=== PATIENT | male | born 1930 | race Caucasian/White ===

== ENCOUNTER 2018-02-17 12:12 | Inpatient (IN) | payer OTHER ==
[~2018-02-17] VITALS: Ht 182.9 cm; Wt 93.4 kg
[~2018-02-17 12:12] MED LIST: AUGMENTIN 875 M1 TAB PO; CEPHALEXIN500 MG PO; COUMADIN 5 MG TA5 MG PO; COUMADIN2.5 M1 PO; COUMADIN5 M2 PO; LEVOTHYROXIN0.075 M1 PO; LEVOTHYROXINE50 MCG PO; LISINOPRIL20 M1 PO; LOVENOX 8080 MG/0.8 SC; PERCOCET 325 MG1 TA2 PO; TYLENOL325 M1 PO; VITAMIN D31000 IU PO
[2018-02-17 13:08] LABS: ABSOLUTE BASOPHIL COUNT 0 /CUMM (0.0-0.2); ABSOLUTE EOSINOPHIL COUNT 0 /CUMM (0.0-0.7); ABSOLUTE GRANULOCYTE CT 8.6 /CUMM (1.4-6.5); ABSOLUTE LYMPH COUNT 0.6 /CUMM (1.2-3.4); ABSOLUTE MONOCYTE COUNT 0.3 /CUMM (0.10-0.60); BASOPHIL % 0.1 % (0.0-2.0); EOSINOPHIL % 0.4 % (0-5); HEMATOCRIT 41.9 % (42-52); MEAN CORPUSCULAR HGB CONC 33.8 G/DL (33.0-37.0); MEAN CORPUSCULAR VOLUME 91.6 FL (80.0-94.0); MEAN PLATELET VOLUME 7.4 FL (7.4-10.4); PLATELET COUNT 193 /CUMM (130-400); RBC DISTRIBUTION WIDTH 13.5 % (11.5-14.5); RED BLOOD CELL CT 4.58 /CUMM (4.70-6.10); WHITE BLOOD CELL COUNT 9.6 /CUMM (4.8-10.8)
[2018-02-17 13:09] LABS: GRANULOCYTE % 89.6 % (42.2-75.2)
--- NOTE | 2018-02-17 13:34 | RADIOLOGY REPORT ---
EXAMINATION: XR CHEST CLINICAL INFORMATION: Fever and nausea COMPARISON: 02/03/2016 TECHNIQUE: 2 views of the chest were obtained. FINDINGS: Lungs are well expanded and clear. No evidence of consolidation or pleural effusion. Mild cardiomegaly with dual-chamber pacemaker in place. Atherosclerotic calcification of the aorta. The hilar contours are normal. 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 IMPRESSION: 1. No evidence of pneumonia. 2. Mild cardiomegaly with dual-chamber pacemaker in place.
--- NOTE | 2018-02-17 13:39 | ED GENERAL ADULT ---
History of Present Illness General Chief Complaint: Fever Stated Complaint: FEVER Source: patient, family Exam Limitations: no limitations Vital Signs & Intake/Output Vital Signs & Intake/Output Vital Signs Date Time Temp Pulse Resp B/P B/P Pulse O2 O2 Flow FiO2 Mean Ox Delivery Rate 02/17 1457 99.6 02/17 1314 102.5 02/17 1221 102.5 84 17 123/79 94 Room Air Triage Note: PT TO ED WITH C/O FEVERS BEGINNING THIS AM. TEMP 102.5 AT TRIAGE. DENIES COUGH OR URINARY SYMPTOMS. REPORTS NAUSEA WITH NO VOMITING. DENIES ABD PAIN. Triage Nurses Notes Reviewed? 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 Denies any similar sick contacts. Denies any headache blurred vision neck pain cough chest pain arm pain jaw pain nausea vomiting redness of the skin recent tick bites ear pain sore throat (Tracy SAMAYOA,Maximo) Allergies Coded Allergies: codeine (Mild, RASH/VOMITING 02/02/16) griseofulvin (From KAYLA-PEG (ULTRAMICROSIZE)) (Mild, WELTS, HIVES 02/17/18) valsartan (Mild, RASH, SEVERE WEAKNESS THAT PT COULD BARELY WALK 02/17/18) Reconcile Medications Amlodipine Besylate 5 MG TABLET 1 TAB PO DAILY BP (Reported) Cholecalciferol (Vitamin D3) (Vitamin D) 1,000 UNIT TABLET 1 TAB PO DAILY SUPPLEMENT (Reported) Levothyroxine Sodium 50 MCG TABLET 1 TAB PO DAILY THYROID (Reported) Lisinopril 20 MG TABLET 1 TAB PO DAILY BP (Reported) Pravastatin Sodium (Pravachol) 40 MG TABLET 1 TAB PO DAILY CHOLESTEROL ( Reported) Warfarin Sodium (Coumadin) 5 MG TABLET 1 TAB PO EOD BLOOD THINNER (Reported) Warfarin Sodium (Coumadin) 2.5 MG TABLET 1 TAB PO EOD BLOOD THINNER (Reported ) (Bear Burk DO) Past History Travel History Traveled to [place] past 21 day No Medical History Any Pertinent Medical History? 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 No (Maximo Nagel) Review of Systems Review of Systems Constitutional: Reports: see HPI, fever. EENTM: Reports: no symptoms. Respiratory: Reports: no symptoms. Cardiovascular: Reports: no symptoms. GI: Reports: no symptoms. Genitourinary: Reports: no symptoms. Musculoskeletal: Reports: no symptoms. Skin: Reports: no symptoms. Neurological/Psychological: Reports: no symptoms. Hematologic/Endocrine: Reports: no symptoms. Immunologic/Allergic: Reports: no symptoms. All Other Systems: Reviewed and Negative (Maximo Nagel) Physical Exam Physical Exam General Appearance: no apparent distress, alert, comfortable Head: atraumatic Eyes: Bilateral: normal appearance. Ears, Nose, Throat: hearing grossly normal Neck: normal inspection Respiratory: no respiratory distress Cardiovascular: regular rate/rhythm Peripheral Pulses: 1+ dorsalis pedis (R), 1+ dorsalis pedis (L) Gastrointestinal: normal bowel sounds, soft, non-tender Extremities: normal inspection, normal range of motion, no edema Neurologic/Psych: no motor/sensory deficits, awake, oriented x 3 Skin: intact, normal color, warm/dry Core Measures ACS in differential dx? No CVA/TIA Diagnosis: No Sepsis Present: No Sepsis Focused Exam Completed? No (Maximo Nagel) Progress Differential Diagnoses I considered the following diagnoses in my evaluation of the patient: [Sepsis pneumonia pharyngitis viral syndrome cellulitis bronchitis meningitis] Plan of Care: Orders Procedure Date/time Status Heart Healthy Diet 02/18 B Active ED Holding Orders 02/17 1619 Active Admit to inpatient 02/17 1619 Active Vital Signs 08/04 1619 Active Code Status 02/17 1619 Active Add-on Test (ER Only) 02/17 1558 Active LACTIC ACID 02/17 1522 Active LYME TITRE 02/17 1246 Active BLOOD CULTURE 02/17 1222 Active URINALYSIS 02/17 1222 Complete TROPONIN LEVEL 02/17 1222 Complete LACTIC ACID 02/17 1222 Complete COMPREHENSIVE METABOLIC PANEL 02/17 1222 Complete CBC WITHOUT DIFFERENTIAL 02/17 1222 Complete EKG 02/17 1222 Active Current Medications Sig/Tomas Start time Last Medication Dose Stop Time Status Admin Sodium Chloride 1,000 ML BOLUS ONE 02/17 1500 AC 02/17 (Normal Saline 0.9%) 02/17 1659 1509 Laboratory Tests 02/17/18 1412: Urine Color YEL, Urine Clarity CLEAR, Urine pH 6.0, Ur Specific [place] 1.010, Urine Protein NEG, Urine Ketones NEG, Urine Nitrite NEG, Urine Bilirubin NEG, Urine Urobilinogen 0.2, Ur Leukocyte Esterase NEG, Ur Microscopic SEDIMENT EXAMINED, Urine RBC RARE, Urine WBC RARE, Ur Epithelial Cells RARE, Urine Hemoglobin SMALL H, Urine Glucose NEG 02/17/18 1246: Anion Gap 9, Estimated GFR 58 L, BUN/Creatinine Ratio 23.3, Glucose 99, Lactic Acid 1.3, Calcium 9.2, Total Bilirubin 0.9, AST 29, ALT 17 L, Alkaline Phosphatase 58, Troponin I 0.03, Total Protein 7.3, Albumin 4.2, Globulin 3.1, Albumin/Globulin Ratio 1.4, CBC w Diff MAN DIFF ORDERED, RBC 4.58 L, MCV 91.6, MCH 31.0, MCHC 33.8, RDW 13.5, MPV 7.4, Gran % 89.6 H, Lymphocytes % 6.4 L, Monocytes % 3.5, Eosinophils % 0.4, Basophils % 0.1, Absolute Granulocytes 8.6 H, Segmented Neutrophils 80 H, Band Neutrophils 7 H, Absolute Lymphocytes 0.6 L, Lymphocytes 8 L, Monocytes 4, Absolute Monocytes 0.3, Eosinophils 1, Absolute Eosinophils 0, Absolute Basophils 0, Platelet Estimate VERIFIED BY SMEAR, Normocytic RBCs VERIFIED, Normochromic RBCs VERIFIED, Lyme Disease Antibody Pending Microbiology 02/17 1255 BLOOD: Blood Culture - RECD 02/17 1248 BLOOD: Blood Culture - RECD Patient on initial presentation is resting comfortably AT bedside was noted to be febrile patient was given IV fluids and ibuprofen with resolution of his fever no specific source of his infection blood work was unremarkable chest x- ray unremarkable urinalysis unremarkable blood cultures and urine culture pending Discussed admission with patient who is aware and has no questions There is consideration of evaluation of bacteremia Diagnostic Imaging: Viewed by Me: Radiology Read. CXR Impression: no acute abnormality, no infiltrates, normal size heart, normal mediastinum Initial ED EKG: AV paced rhythm, 77 bpm Comments: PATIENT: ADRIAN MEHTA PRESENT AGE: 87 PATIENT ACCOUNT NO: [id number] : 32 LOCATION: [facility] ORDERING PHYSICIAN: Abrahan SAMAYOA SERVICE DATE: 02/17/18 EXAM TYPE: RAD - XRY-CHEST XRAY, TWO VIEWS EXAMINATION: XR CHEST CLINICAL INFORMATION: Fever and nausea COMPARISON: 02/03/2016 TECHNIQUE: 2 views of the chest were obtained. FINDINGS: Lungs are well expanded and clear. No evidence of consolidation or pleural effusion. Mild cardiomegaly with dual-chamber pacemaker in place. Atherosclerotic calcification of the aorta. The hilar contours are normal. 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 IMPRESSION: 1. No evidence of pneumonia. 2. Mild cardiomegaly with dual-chamber pacemaker in place. DICTATED BY: Shayan Lr MD DATE/TIME DICTATED:02/17/181327 SPRAY DRIER:ISRAEL DATE/TIME TRANSCRIBED:02/17/181327 CONFIDENTIAL, DO NOT COPY WITHOUT APPROPRIATE AUTHORIZATION. <Electronically signed in Other Vendor System> SI (Maximo Nagel) Departure Departure Disposition: STILL A PATIENT Condition: Stable Clinical Impression Primary Impression: Fever Secondary Impressions: Bandemia Referrals: Tamika BELLO,Nate Cuellar (PCP/Family) Departure Forms: Customer Survey General Discharge Information Admission Note Spoke With: Aisha Taylor MD Documentation of Exam: Documentation of any treatments & extenuating circumstances including Concerns Regarding Discharge (functional status, medication knowledge or non-compliance, living conditions, etc.) that warrant an admission rather than observation: [ Patient requires IV fluids anti-pyretics, urine and blood cultures pending infectious disease consultation Lyme titer pending] (Maximo Nagel) Departure Comments 8/4/18 77-year-old man presents with shaking chills, rigors, 102.5 fever. No focus history of pacemaker. No acute distress on my exam. He is being admitted to the hospital as he has significant bandemia to rule out bacteremia. (Wm ABBASI,Bear Espino) Critical Care Note Critical Care Note Critical Care Time: non-applicable (Tracy SAMAYOA,Maximo)
[2018-02-17] MEDS ORDERED: AMLODIPINE BESYL5 M1 PO (16:15)
[2018-02-17] MEDS ORDERED: PRAVACHOL40 M1 PO (16:16)
[2018-02-17] MEDS ORDERED: VITAMIN D1000 UNIT PO (16:16)
--- NOTE | 2018-02-17 16:35 | History & Physical ---
See Addendum Gayle Vidal 02/17/18 0245: General Information and HPI History of Present Illness: Zi Desai is a 87 YO male with a PMHx of Lyme disease treated 10 years prior, hypothyroidism, BPH, PVD, Sick Sinus syndrome with pacemaker placement in 2016, HTN, and HLD who presents to the ED with "fever and chills." Patient states that this morning he had a bowel movement after breakfast this morning around 8:30 AM and right afterwards was experiencing chills. Patient mentions his measures his temperature as 103 degrees and continued to feel cold. Patient mentions over the past month he has taken off 2 ticks, one from his arm and one from his shoulder. Patient notes he has plenty of deer in his backyard and regularly checks for tick bites. Patient mentions the last occurence of his Lyme disease he had a circumferential rash that developed. Patient otherwise denies any recent travel, farm animal exposure, hiking, sick contacts, and blood transfusions. Patient denies any symptoms of nausea, vomiting, fatigue, weakness , rashes, ulcers, joint/muscle pain, headaches, swelling, abdominal pain, chest pain, shortness of breath, diarrhea, constipation, dizziness, blurry vision, and syncope. Patient otherwise is in good health. Patient lives at home with his . Patient denies any illicit drug usage, smoking tobacco, and drinking alcohol. Patient is retired from working in the [employer] as a Patient's PCP is Dr. Lundberg. Patient Bakery Helper is Dr. Schmid in [place]. Patient's Civil Engineering Professional is Dr. Barros. Allergies/Medications Allergies: Coded Allergies: codeine (Mild, RASH/VOMITING 02/02/16) griseofulvin (From KAYLA-PEG (ULTRAMICROSIZE)) (Mild, WELTS, HIVES 02/17/18) valsartan (Mild, RASH, SEVERE WEAKNESS THAT PT COULD BARELY WALK 02/17/18) Home Med list Amlodipine Besylate 5 MG TABLET 1 TAB PO DAILY BP (Reported) Cholecalciferol (Vitamin D3) (Vitamin D) 1,000 UNIT TABLET 1 TAB PO DAILY SUPPLEMENT (Reported) Levothyroxine Sodium 50 MCG TABLET 1 TAB PO DAILY THYROID (Reported) Lisinopril 20 MG TABLET 1 TAB PO DAILY BP (Reported) Pravastatin Sodium (Pravachol) 40 MG TABLET 1 TAB PO DAILY CHOLESTEROL ( Reported) Warfarin Sodium (Coumadin) 5 MG TABLET 1 TAB PO EOD BLOOD THINNER (Reported) Warfarin Sodium (Coumadin) 2.5 MG TABLET 1 TAB PO EOD BLOOD THINNER (Reported ) Past History Travel History Traveled to [place] past 21 day No Medical History Neurological: BRAIN TUMOR EENT: FUNGAL RASH Cardiovascular: AFIB, hypertension, PVD, SLOW/IRREGULAR HEARTBEAT DVT Respiratory: NONE Gastrointestinal: NONE Hepatic: NONE Renal: benign prost hyperplasia Musculoskeletal: osteoarthritis Psychiatric: NONE Endocrine: hypothyroidism Blood Disorders: DVT Cancer(s): NONE 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 Home Who Do You Live With? spouse Smoking Status: Never Smoked ETOH Use: denies use Illicit Drug Use: denies illicit drug use Living Will? yes Employment History Employment Retired Review of Systems Review of Systems Constitutional: Reports: chills, fever. Denies: diaphoresis, malaise, weakness. EENTM: Denies: blurred vision, double vision, visual changes, ear pain. Cardiovascular: Denies: chest pain, palpitations. Respiratory: Denies: cough, short of breath. GI: Denies: abdominal pain, constipation, diarrhea, nausea, vomiting. Genitourinary: Denies: dysuria. Musculoskeletal: Denies: back pain, joint pain, muscle pain. Neurological/Psychological: Denies: headache. Hematologic/Endocrine: Denies: bruising, bleeding. Exam & Diagnostic Data Last 24 Hrs of Vital Signs/I&O Vital Signs Date Time Temp Pulse Resp B/P B/P Pulse O2 O2 Flow FiO2 Mean Ox Delivery Rate 02/17 1649 98.7 87 15 103/59 99 Room Air 02/17 1457 99.6 02/17 1314 102.5 02/17 1221 102.5 84 17 123/79 94 Room Air Intake & Output 02/17 1600 02/17 0800 02/17 0000 Intake Total 1000 Output Total Balance 1000 Intake, IV 1000 Physical Exam General Appearance Alert, Oriented X3, Cooperative, No Acute Distress Skin dry, flaking skin in peripheral extremities; left lower medial leg surgical scar HEENT Atraumatic, PERRLA Neck Supple, No JVD Lymphatic warmth in cervical region; no swelling noted Cardiovascular Regular Rate, Normal S1, Normal S2 Lungs Clear to Auscultation, Normal Air Movement Abdomen Soft, No Tenderness Neurological Normal Speech, Foot drop in bilateral feet Extremities Normal Pulses, Bilateral 1+ pitting edema in LE Assessment/Plan Assessment: Imaging- CXR IMPRESSION 1. No evidence of pneumonia. 2. Mild cardiomegaly with dual-chamber pacemaker in place. Pertinent Labs- WBC 9.6 HGB 14.2 HCT 41.9 PLT 193 Band neutrophils 7 UA: normal Lyme titer: pending 87 YO male with a PMHx. of Lyme disease treated 10 years prior, hypothyroidism, BPH, PVD, Sick Sinus syndrome with pacemaker placement in 2016, HTN, and HLD who presents to the ED with "fever and chills." Patient received 1 L bolus NS and Ibuprofen 800 mg once in the ED. Etiology in this case with a benign disease presentation apart from less than 24 hours of recent onset fever and chills with relatively normal lab findings is at the moment a fever of unknown origin. Further work up blood and urine cultures warranted. Patient has a past history of Lyme disease with treatment and therefore further workup for tick-borne illnesses is recommended. Other possible etiolgies though unlikely include lymphoma, endocarditis, anaplasma, and autoimmune disorders among others. Plan: #Fever - Admit to general medicine for monitoring and assessment of vitals - Test for Lyme serology via a Lyme titer - Also testing for Anaplasma, Babesia - Peripheral blood smear - UA and CXR unremarkable - Blood and Urine cultures - Latest WBC 9.6; follow CBC - Acetaminophen prn fevers - DVT PPx. #Home medications - Please continue home medications - Follow up INR; dose Coumadin accordingly Code Status: FC As Ranked By This Provider Problem List: 1. Fever 2. Bandemia Core Measures/Misc (04/02) Acute Coronary Syndrome ACS Diagnosis: No Congestive Heart Failure Congestive Heart Failure Diagnosis No Cerebrovascular Accident CVA/TIA Diagnosis: No VTE (View Protocol) VTE Risk Factors Acute Medical Illness No Mechanical VTE Prophylaxis d/t N/A MechProphylax Ordered No VTE Pharm Prophylaxis d/t NA PharmProphylax ordered Sepsis (View protocol) Sepsis Present: No If YES complete Sepsis Event Note If YES complete Sepsis Event Note Ethan BELLO,Jam 02/17/18 1640: Core Measures/Misc (04/02) Sepsis (View protocol) If YES complete Sepsis Event Note If YES complete Sepsis Event Note Resident Review Statement Resident Statement: examined this patient, discussed with sports management internship, agreed with sports management internship, reviewed EMR data (avail), discussed with nursing, discussed with case mgmt, reviewed images, amended to note Other Findings: 87-year-old male with past medical history of sick sinus syndrome status post pacemaker placement/2016, hypertension, hyperlipidemia, hypothyroidism, Lyme disease 10 years ago, BPH, who was in his usual state of health, presented to the ED after having sudden onset of high-grade fever and chills early this morning to 103F, without any other significant symptoms. He did mention that he has significant amount of cartilage/yard work exposure, and has been bitten by ticks frequently even within the past month, with the tick being removed later on from his body. He does not have any rashes though. Vitals and labs as noted above. Patient is being admitted in the general medical floor for management of following issues: #Fever without focus Currently patient had one episode of high-grade fever, but also has bandemia, thus suggesting infective etiology. Given his significant yardwork/course exposure and multiple recent tick/insect bites, we will check tick panel including Anaplasma and IVC are, and alignment to body. In the meantime, we will empirically treat with doxycycline, pending further information. #INR, not ordered initially in the ED, so pending results to dose coumadin. #Diet: Regular diet #DVT ppx: With coumadin/ALPS #Code status: Full code Brandon BELLO,Aisha 02/18/18 1035: Core Measures/Misc (04/02) Sepsis (View protocol) If YES complete Sepsis Event Note If YES complete Sepsis Event Note Attending MD Review Statement Attending Statement Attending MD Statement: examined this patient, discuss w/resident/PA/CABINET ABRASIVE SANDBLASTER, agreed w/resident/PA/CABINET ABRASIVE SANDBLASTER, discussed with family, reviewed EMR data (avail), discussed with nursing, reviewed images, amended to note Attending Assessment/Plan: Please see my separate addendum.
--- NOTE | 2018-02-17 17:43 | PN- Att Addend ---
Attending Addendum Attending Brief Note 87 y/o M with h sig for atrial fibrillation, status post pacemaker placement in 2016, history of peripheral vascular disease status post bypass grafting in 2015, history of hypertension, BPH, osteoarthritis who presented with feeling cold and freezing. Patient had chills. The symptoms started in the morning. He woke up normal and ate his breakfast like he normally does. Afterwards he went to the bathroom and started to feel cold. He was so cold that that covering with 3 blankets was also not helping him. He denies cough, cold, shortness of breath. He denies any urinary complaints. He did mention that about a month ago he had a tick bite. He denies any bull's-eye rash. He denies any diarrhea, nausea vomiting. In the emergency room patient was found to be febrile and had bandemia. Vital Signs Date Time Temp Pulse Resp B/P B/P Pulse O2 O2 Flow FiO2 Mean Ox Delivery Rate 02/17 1649 98.7 87 15 103/59 99 Room Air 02/17 1457 99.6 02/17 1314 102.5 02/17 1221 102.5 84 17 123/79 94 Room Air on exam; aox3, nad. cv; s1,s2, rrr, + pacemaker. resp: clear abd; soft, nt, bs+ ext; no edema skin: + scar osorio on lle. Laboratory Tests 02/17 1412 Urines Urine Color (YEL,AMB,STR) YEL Urine Clarity (CLEAR) CLEAR Urine pH (5.0 - 8.0) 6.0 Ur Specific [place] (1.001 - 1.035) 1.010 Urine Protein (NEG,<30 MG/DL) NEG Urine Ketones (NEG) NEG Urine Nitrite (NEG) NEG Urine Bilirubin (NEG) NEG Urine Urobilinogen (0.1 - 1.0 EU/dl) 0.2 Ur Leukocyte Esterase (NEG) NEG Ur Microscopic SEDIMENT EXAMINED Urine RBC (0 - 5 /HPF) RARE Urine WBC (0 - 2 /HPF) RARE Ur Epithelial Cells (NONE,FEW) RARE Urine Hemoglobin (NEG) SMALL H Urine Glucose (N MG/DL) NEG 02/17 1246 Chemistry Sodium (137 - 145 mmol/L) 134 L Potassium (3.5 - 5.1 mmol/L) 4.4 Chloride (98 - 107 mmol/L) 102 Carbon Dioxide (22 - 30 mmol/L) 23 Anion Gap (5 - 16) 9 BUN (9 - 20 mg/dL) 28 H Creatinine (0.7 - 1.2 mg/dL) 1.2 Estimated GFR (>60 ml/min) 58 L BUN/Creatinine Ratio (7 - 25 %) 23.3 Glucose (65 - 99 mg/dL) 99 Lactic Acid (0.7 - 2.1 mmol/L) 1.3 Calcium (8.4 - 10.2 mg/dL) 9.2 Total Bilirubin (0.2 - 1.3 mg/dL) 0.9 AST (17 - 59 U/L) 29 ALT (21 - 72 U/L) 17 L Alkaline Phosphatase (< 127 U/L) 58 Troponin I (<0.11 ng/ml) 0.03 Total Protein (6.3 - 8.2 g/dL) 7.3 Albumin (3.5 - 5.0 g/dL) 4.2 Globulin (1.9 - 4.2 gm/dL) 3.1 Albumin/Globulin Ratio (1.1 - 2.2 %) 1.4 Hematology CBC w Diff MAN DIFF ORDERED WBC (4.8 - 10.8 /CUMM) 9.6 RBC (4.70 - 6.10 /CUMM) 4.58 L Hgb (14.0 - 18.0 G/DL) 14.2 Hct (42 - 52 %) 41.9 L MCV (80.0 - 94.0 FL) 91.6 MCH (27.0 - 31.0 PG) 31.0 MCHC (33.0 - 37.0 G/DL) 33.8 RDW (11.5 - 14.5 %) 13.5 Plt Count (130 - 400 /CUMM) 193 MPV (7.4 - 10.4 FL) 7.4 Gran % (42.2 - 75.2 %) 89.6 H Lymphocytes % (20.5 - 51.1 %) 6.4 L Monocytes % (1.7 - 9.3 %) 3.5 Eosinophils % (0 - 5 %) 0.4 Basophils % (0.0 - 2.0 %) 0.1 Absolute Granulocytes (1.4 - 6.5 /CUMM) 8.6 H Segmented Neutrophils (42.2 - 75.2 %) 80 H Band Neutrophils (0.0 - 5.0 %) 7 H Absolute Lymphocytes (1.2 - 3.4 /CUMM) 0.6 L Lymphocytes (20.5 - 51.1 %) 8 L Monocytes (1.7 - 9.3 %) 4 Absolute Monocytes (0.10 - 0.60 /CUMM) 0.3 Eosinophils (0 - 5.0 %) 1 Absolute Eosinophils (0.0 - 0.7 /CUMM) 0 Absolute Basophils (0.0 - 0.2 /CUMM) 0 Platelet Estimate (ADEQUATE) VERIFIED BY SMEAR Normocytic RBCs VERIFIED Normochromic RBCs VERIFIED Serology Lyme Disease Antibody Pending EKG is consistent with paced rhythm. CXR: IMPRESSION: 1. No evidence of pneumonia. 2. Mild cardiomegaly with dual-chamber pacemaker in place. A/P; 87 y/o M with pmh sig for atrial fibrillation, status post pacemaker placement in 2015, history of peripheral vascular disease status post bypass grafting in 2014, history of hypertension, BPH, osteoarthritis admitted with febrile illness and bandemia. There is a possibility of tickborne illness the patient's history significant for tick bite about a month ago. Patient admitted to medicine floor. Will obtain urine culture and blood culture. Urinalysis is not significant and chest x-ray also negative. Will obtain Lyme antibody and then reflex Western blot if positive. We will treat the patient empirically with doxycycline at this time till we have more information. Plesuzanna order whole Tick panel including checking for Anaplasma and Babesia although patient's blood counts are pretty stable. Please check INR and dose Coumadin accordingly. Please confirm and continue the rest of home medications. DVt px; check INR and dose Coumadin accordingly. Patient is a full code. Discussed with patient's at bedside.
[2018-02-17 17:50] VITALS: BP 118/68
[2018-02-17 20:07] LABS: PT 32.1 SEC (9.4-12.5)
[2018-02-17 20:22] VITALS: BP 102/61
[2018-02-18 06:33] VITALS: BP 134/70
[2018-02-18 08:47] LABS: ABSOLUTE BASOPHIL COUNT 0.1 /CUMM (0.0-0.2); ABSOLUTE EOSINOPHIL COUNT 0.1 /CUMM (0.0-0.7); ABSOLUTE GRANULOCYTE CT 12.5 /CUMM (1.4-6.5); ABSOLUTE LYMPH COUNT 0.7 /CUMM (1.2-3.4); ABSOLUTE MONOCYTE COUNT 0.9 /CUMM (0.10-0.60); BASOPHIL % 0.4 % (0.0-2.0); EOSINOPHIL % 0.7 % (0-5); GRANULOCYTE % 87.7 % (42.2-75.2); HEMATOCRIT 37.1 % (42-52); MEAN CORPUSCULAR HGB 31.5 PG (27.0-31.0); MEAN CORPUSCULAR VOLUME 92.9 FL (80.0-94.0); MEAN PLATELET VOLUME 7.8 FL (7.4-10.4); PLATELET COUNT 163 /CUMM (130-400); RBC DISTRIBUTION WIDTH 13.4 % (11.5-14.5); WHITE BLOOD CELL COUNT 14.2 /CUMM (4.8-10.8)
[2018-02-18 08:57] LABS: PT 32.3 SEC (9.4-12.5)
--- NOTE | 2018-02-18 10:35 | PN- Housestaff ---
Subjective Follow-up For: Fever Bandemia Subjective: Afebrile overnight. Patient is awake and notes he slept well last night. Patient told he will continue to have his antibiotic therapy and will follow him for any developing symptoms of fevers, if any. Patient notes no new complaints today and is feeling well. Patient otherwise denies any fevers, chills, fatigue, chest pain, dyspnea, nausea, vomiting, diarrhea, and constipatipn. Review of Systems Constitutional: Reports: see HPI. Objective Last 24 Hrs of Vital Signs/I&O Vital Signs Date Time Temp Pulse Resp B/P B/P Pulse O2 O2 Flow FiO2 Mean Ox Delivery Rate 02/18 0955 98.6 66 118/60 08/05 0954 98.6 66 118/60 08/05 0633 98.7 68 20 134/70 95 Room Air 08/ 2022 98.8 68 18 102/61 96 Room Air / 1750 97.5 71 18 118/68 94 Room Air / 1649 98.7 87 15 103/59 99 Room Air / 1457 99.6 08/04 1314 102.5 08/04 1221 102.5 84 17 123/79 94 Room Air Intake & Output 08/ 1600 08/05 0800 08/05 0000 Intake Total 370 480 Output Total 900 Balance -530 480 Intake, IV 250 Intake, Oral 120 480 Number 1 Bowel Movements Output, Urine 900 Patient 206 lb Weight Weight Reported by Patient Measurement Method Physical Exam General Appearance: Alert, Oriented X3, Cooperative, No Acute Distress Skin: No Rashes, No Breakdown Neck: Supple, No JVD Lymphatic: Cervical nl Cardiovascular: Regular Rate, Normal S1, Normal S2 Lungs: Clear to Auscultation Abdomen: Soft, No Tenderness Neurological: Normal Speech Extremities: No Edema, Normal Pulses Assessment/Plan Assessment: Imaging- CXR IMPRESSION 1. No evidence of pneumonia. 2. Mild cardiomegaly with dual-chamber pacemaker in place. Pertinent Labs- WBC 9.6 -> 14.2 HGB 14.2 HCT 41.9 PLT 193 Band neutrophils 7 UA: normal Lyme titer: pending Blood culture - GP cocci 87 YO male with a PMHx. of Lyme disease treated 10 years prior, hypothyroidism, BPH, PVD, Sick Sinus syndrome with pacemaker placement in 2016, HTN, and HLD who presents to the ED with "fever and chills." Patient received 1 L bolus NS and Ibuprofen 800 mg once in the ED. Etiology in this case with a benign disease presentation apart from less than 24 hours of recent onset fever and chills with relatively normal lab findings is at the moment a fever of unknown origin. Further work up blood and urine cultures warranted. Patient has a past history of Lyme disease with treatment and therefore further workup for tick-borne illnesses is recommended. Other possible etiolgies though unlikely include lymphoma, endocarditis, anaplasma, and autoimmune disorders among others. Plan: #Fever - Admit to general medicine for monitoring and assessment of vitals - Continue Doxycycline 100 mg BID - Test for Lyme serology via a Lyme titer pending - Also testing for Anaplasma, Babesia - Peripheral blood smear - UA and CXR unremarkable - Blood culture grew GP cocci, although possible contamination; continue to monitor for sx. - Latest WBC 9.6 -> 14.2; follow CBC - Acetaminophen prn fevers - DVT PPx. #Home medications - Please continue home medications - Follow up INR; dose Coumadin accordingly Code Status: FC Problem List: 1. Fever 2. Bandemia Pain Ratin Pain Location: NA Pain Goal: Remain pain free Pain Plan: NA Tomorrow's Labs & Rationales: CBC
--- NOTE | 2018-02-18 10:38 | PN- Att Addend ---
Attending Addendum Attending Brief Note Patient seen and examined, overall feeling better. Patient remains afebrile. His blood culture grew 1 out of 2 sets gram-positive cocci in pairs and chains. He does have worsening leukocytosis today. He did receive a dose of vancomycin early this morning. Vital Signs Date Time Temp Pulse Resp B/P B/P Pulse O2 O2 Flow FiO2 Mean Ox Delivery Rate 02/18 955 98.6 66 118/60 02/18 0954 98.6 66 118/60 02/18 0633 98.7 68 20 134/70 95 Room Air 02/17 2022 98.8 68 18 102/61 96 Room Air 02/17 1750 97.5 71 18 118/68 94 Room Air 02/17 1649 98.7 87 15 103/59 99 Room Air 02/17 1457 99.6 02/17 1314 102.5 02/17 1221 102.5 84 17 123/79 94 Room Air on exam; aox3, nad. cv; s1, s2, rrr, + systolic murmur,+ pacemaker. resp; clear abd; soft, nt, bs+ ext; no edema Laboratory Tests 02/18 1947 1522 Chemistry Sodium (137 - 145 mmol/L) 137 Potassium (3.5 - 5.1 mmol/L) 4.3 Chloride (98 - 107 mmol/L) 106 Carbon Dioxide (22 - 30 mmol/L) 22 Anion Gap (5 - 16) 9 BUN (9 - 20 mg/dL) 30 H Creatinine (0.7 - 1.2 mg/dL) 1.3 H Estimated GFR (>60 ml/min) 52 L BUN/Creatinine Ratio (7 - 25 %) 23.1 Lactic Acid Cancelled Coagulation PT (9.4 - 12.5 SEC) 32.3 H 32.1 H INR (0.90 - 1.17) 2.93 H 2.91 H Hematology CBC w Diff MAN DIFF ORDERED WBC (4.8 - 10.8 /CUMM) 14.2 H RBC (4.70 - 6.10 /CUMM) 3.99 L Hgb (14.0 - 18.0 G/DL) 12.6 L Hct (42 - 52 %) 37.1 L MCV (80.0 - 94.0 FL) 92.9 MCH (27.0 - 31.0 PG) 31.5 H MCHC (33.0 - 37.0 G/DL) 34.0 RDW (11.5 - 14.5 %) 13.4 Plt Count (130 - 400 /CUMM) 163 MPV (7.4 - 10.4 FL) 7.8 Gran % (42.2 - 75.2 %) 87.7 H Lymphocytes % (20.5 - 51.1 %) 5.1 L Monocytes % (1.7 - 9.3 %) 6.1 Eosinophils % (0 - 5 %) 0.7 Basophils % (0.0 - 2.0 %) 0.4 Absolute Granulocytes (1.4 - 6.5 /CUMM) 12.5 H Segmented Neutrophils (42.2 - 75.2 %) 83 H Band Neutrophils (0.0 - 5.0 %) 7 H Absolute Lymphocytes (1.2 - 3.4 /CUMM) 0.7 L Lymphocytes (20.5 - 51.1 %) 4 L Monocytes (1.7 - 9.3 %) 4 Absolute Monocytes (0.10 - 0.60 /CUMM) 0.9 H Eosinophils (0 - 5.0 %) 1 Absolute Eosinophils (0.0 - 0.7 /CUMM) 0.1 Basophils (0.0 - 2.0 %) 1 Absolute Basophils (0.0 - 0.2 /CUMM) 0.1 Platelet Estimate (ADEQUATE) VERIFIED BY SMEAR Normocytic RBCs VERIFIED Normochromic RBCs VERIFIED 02/17 1412 Urines Urine Color (YEL,AMB,STR) YEL Urine Clarity (CLEAR) CLEAR Urine pH (5.0 - 8.0) 6.0 Ur Specific Eighty [place] (1.001 - 1.035) 1.010 Urine Protein (NEG,<30 MG/DL) NEG Urine Ketones (NEG) NEG Urine Nitrite (NEG) NEG Urine Bilirubin (NEG) NEG Urine Urobilinogen (0.1 - 1.0 EU/dl) 0.2 Ur Leukocyte Esterase (NEG) NEG Ur Microscopic SEDIMENT EXAMINED Urine RBC (0 - 5 /HPF) RARE Urine WBC (0 - 2 /HPF) RARE Ur Epithelial Cells (NONE,FEW) RARE Urine Hemoglobin (NEG) SMALL H Urine Glucose (N MG/DL) NEG 02/17 1246 Chemistry Sodium (137 - 145 mmol/L) 134 L Potassium (3.5 - 5.1 mmol/L) 4.4 Chloride (98 - 107 mmol/L) 102 Carbon Dioxide (22 - 30 mmol/L) 23 Anion Gap (5 - 16) 9 BUN (9 - 20 mg/dL) 28 H Creatinine (0.7 - 1.2 mg/dL) 1.2 Estimated GFR (>60 ml/min) 58 L BUN/Creatinine Ratio (7 - 25 %) 23.3 Glucose (65 - 99 mg/dL) 99 Lactic Acid (0.7 - 2.1 mmol/L) 1.3 Calcium (8.4 - 10.2 mg/dL) 9.2 Total Bilirubin (0.2 - 1.3 mg/dL) 0.9 AST (17 - 59 U/L) 29 ALT (21 - 72 U/L) 17 L Alkaline Phosphatase (< 127 U/L) 58 Lactate Dehydrogenase (313 - 618 U/L) 612 Troponin I (<0.11 ng/ml) 0.03 Total Protein (6.3 - 8.2 g/dL) 7.3 Albumin (3.5 - 5.0 g/dL) 4.2 Globulin (1.9 - 4.2 gm/dL) 3.1 Albumin/Globulin Ratio (1.1 - 2.2 %) 1.4 Hematology CBC w Diff MAN DIFF ORDERED WBC (4.8 - 10.8 /CUMM) 9.6 RBC (4.70 - 6.10 /CUMM) 4.58 L Hgb (14.0 - 18.0 G/DL) 14.2 Hct (42 - 52 %) 41.9 L MCV (80.0 - 94.0 FL) 91.6 MCH (27.0 - 31.0 PG) 31.0 MCHC (33.0 - 37.0 G/DL) 33.8 RDW (11.5 - 14.5 %) 13.5 Plt Count (130 - 400 /CUMM) 193 MPV (7.4 - 10.4 FL) 7.4 Gran % (42.2 - 75.2 %) 89.6 H Lymphocytes % (20.5 - 51.1 %) 6.4 L Monocytes % (1.7 - 9.3 %) 3.5 Eosinophils % (0 - 5 %) 0.4 Basophils % (0.0 - 2.0 %) 0.1 Absolute Granulocytes (1.4 - 6.5 /CUMM) 8.6 H Segmented Neutrophils (42.2 - 75.2 %) 80 H Band Neutrophils (0.0 - 5.0 %) 7 H Absolute Lymphocytes (1.2 - 3.4 /CUMM) 0.6 L Lymphocytes (20.5 - 51.1 %) 8 L Monocytes (1.7 - 9.3 %) 4 Absolute Monocytes (0.10 - 0.60 /CUMM) 0.3 Eosinophils (0 - 5.0 %) 1 Absolute Eosinophils (0.0 - 0.7 /CUMM) 0 Absolute Basophils (0.0 - 0.2 /CUMM) 0 Platelet Estimate (ADEQUATE) VERIFIED BY SMEAR Normocytic RBCs VERIFIED Normochromic RBCs VERIFIED Serology Lyme Disease Antibody Pending A/P; 87 y/o M with pmh sig for atrial fibrillation, status post pacemaker placement in 2015, history of peripheral vascular disease status post bypass grafting in 2014, history of hypertension, BPH, osteoarthritis admitted with febrile illness and bandemia. Possibility of tickborne illness was entertained with the patient providing history of tick bite about a month ago. Today patient's leukocytosis is worse but he is afebrile. He also has gram-positive cocci in his blood and he is bacteremic with GPC in pairs and chains. Patient received a dose of vancomycin last night. He was started on doxycycline. Lyme antibody pending. Please check the peripheral smear. Please order tickborne panel. Please get infectious disease consult. Patient does have a pacemaker and with bacteremia there is always risk for seeding the pacemaker. INR therapeutic on current Coumadin. Continue the rest of the medications.
[2018-02-18 15:15] VITALS: BP 150/68
[2018-02-18 22:12] VITALS: BP 132/66
--- NOTE | 2018-02-19 07:20 | PN- Housestaff ---
Gayle Vidal 02/19/18 0717: Subjective Follow-up For: Fever Bandemia Subjective: Afebrile overnight. Patient is awake and slept well last night. Patient notes he got out of bed yesterday and did some walking around the floor and felt good. Patient inquires about his test results although most of them have not been returned. Patient mentions he does take an antifungal cream, last taken one month prior, for itching around his inguinal folds, but denies any current itching. Patient denies any other rashes present on his body. Patient otherwise is hoping to go home today. Patient denies any fevers, chills, abdominal pain, fatigue, dyspnea, diarrhea, and constipation. Patient otherwise is doing well today. Review of Systems Constitutional: Reports: see HPI. Objective Last 24 Hrs of Vital Signs/I&O Vital Signs Date Time Temp Pulse Resp B/P B/P Pulse O2 O2 Flow FiO2 Mean Ox Delivery Rate 02/19 0739 89 120/68 02/19 0739 89 120/68 02/19 0728 97.9 80 20 120/68 96 Room Air 02/18 2212 98.6 84 20 132/66 94 /05 1515 99.5 63 20 150/68 94 Room Air Intake & Output 02/19 1600 08/06 0800 08/06 0000 Intake Total 120 410 Output Total 300 350 Balance -180 60 Intake, IV 10 Intake, Oral 120 400 Number 0 Bowel Movements Output, Urine 300 350 Physical Exam General Appearance: Alert, Oriented X3, Cooperative, No Acute Distress HEENT: Atraumatic Neck: Supple, No JVD Cardiovascular: Regular Rate, Normal S1, Normal S2 Lungs: Clear to Auscultation, Normal Air Movement Abdomen: Soft, No Tenderness Neurological: Normal Speech Extremities: Left leg femoral bypass scar present Assessment/Plan Assessment: Imaging- CXR IMPRESSION 1. No evidence of pneumonia. 2. Mild cardiomegaly with dual-chamber pacemaker in place. Pertinent Labs- WBC 9.6 -> 14.2 -> 9.6 HGB 12 HCT 35 PLT 162 Band neutrophils 7 UA: normal Lyme titer: pending Blood culture - GP cocci pairs and chains: Group B strep on identification 87 YO male with a PMHx. of Lyme disease treated 10 years prior, hypothyroidism, BPH, PVD, Sick Sinus syndrome with pacemaker placement in 2016, HTN, and HLD who presents to the ED with "fever and chills." Patient received 1 L bolus NS and Ibuprofen 800 mg once in the ED. Etiology in this case with a benign disease presentation apart from less than 24 hours of recent onset fever and chills with relatively normal lab findings is at the moment a fever of unknown origin. Further work up blood and urine cultures warranted. Patient has a past history of Lyme disease with treatment and therefore further workup for tick-borne illnesses is recommended. Other possible etiolgies though unlikely include lymphoma, endocarditis, anaplasma, and autoimmune disorders among others. Plan: #Group B Strep Bacteremia, presented with fever - Admit to general medicine for monitoring and assessment of vitals - Discontinued Doxycycline 100 mg BID - DisContinued Ceftriaxone 2 g IV - Started Amoxicillin 500 mg TID - According to ID, likely source of bacteremia from chronic, left-sided scar from prior left lower extremity bypass - Vascular consulted - Elevate left leg; compression stocking for left lower extremity - Test for Lyme serology via a Lyme titer pending - Also testing for Anaplasma, Babesia - Peripheral blood smear - UA and CXR unremarkable - Blood culture grew GP cocci, Group B strep identified - Latest WBC 9.6, follow CBC in AM - DVT PPx. #Home medications - Please continue home medications - Follow up INR; dose Coumadin accordingly Code Status: FC Problem List: 1. Fever 2. Bandemia 3. Bacteremia Pain Ratin Pain Location: NA Pain Goal: Remain pain free Pain Plan: NA Tomorrow's Labs & Rationales: Routine Cady Barros MD 02/19/18 0940: Attending MD Review Statement Attending Statement Attending MD Statement: examined this patient, discuss w/resident/PA/LUMBER TRIPPER, agreed w/resident/PA/LUMBER TRIPPER, reviewed EMR data (avail), discussed with nursing, discussed with case mgmt, reviewed images Attending Assessment/Plan: 87-year-old male past medical history of hypertension, peripheral vascular disease status post stent on Coumadin and previous pacemaker placement. He is here with fever and group B strep bacteremia. The source is unknown at this point. I think we can safely stop the Doxy and continue the ceftriaxone and get an ID evaluation. The issue is the etiology of the strep.
[2018-02-19 07:28] VITALS: BP 120/68
[2018-02-19 07:28] LABS: RED BLOOD CELL CT 3.99 /CUMM (4.70-6.10)
[2018-02-19 08:12] LABS: ABSOLUTE BASOPHIL COUNT 0.1 /CUMM (0.0-0.2); ABSOLUTE EOSINOPHIL COUNT 0.4 /CUMM (0.0-0.7); ABSOLUTE GRANULOCYTE CT 6.2 /CUMM (1.4-6.5); BASOPHIL % 0.6 % (0.0-2.0); EOSINOPHIL % 3.9 % (0-5); GRANULOCYTE % 64.2 % (42.2-75.2); MEAN CORPUSCULAR HGB 31.5 PG (27.0-31.0); MEAN CORPUSCULAR HGB CONC 34.2 G/DL (33.0-37.0); MEAN CORPUSCULAR VOLUME 92.1 FL (80.0-94.0); MEAN PLATELET VOLUME 7.8 FL (7.4-10.4); PLATELET COUNT 162 /CUMM (130-400); RBC DISTRIBUTION WIDTH 13.7 % (11.5-14.5); WHITE BLOOD CELL COUNT 9.6 /CUMM (4.8-10.8)
--- NOTE | 2018-02-19 09:51 | Discharge Summary ---
Visit Information Visit Dates Admission Date: 02/17/18 Discharge Date: 02/20/18 Hospital Course Course Attending Physician: Fiorella BELLO,Cady Harrison Primary Care Physician: Tamika BELLO,Nate Cuellar Consulting Request: Consulting Specialty: Infectious Disease Consulting Physician: Dr. Zamora Reason for Consult: Bacteremia Hospital Course: 87 YO male with a PMHx. of Lyme disease treated 10 years prior, hypothyroidism, BPH, PVD, Sick Sinus syndrome with pacemaker placement in 2016, HTN, and HLD who presents to the ED with "fever and chills." Patient had noted a fever of 103 degrees at home after a bowel movement. Patient came to the ED and received 1 L bolus NS and Ibuprofen 800 mg once in the ED, for which he defervesced after receiving the medication. PE - Patient noted to have a chronic venous stasis with a femoral bypass surgical scar noted on his left lower extremity, with surrounding minmial erythema and swelling Etiology in this case with a presentation of less than 24 hours of recent onset fever and chills and a subsequent positive Group B strep blood culture, with a likely left lower extremity cellulitis source, is Bacteremia. Patient has a past history of Lyme disease with treatment and therefore further workup for tick- borne illnesses was recommended. Patient's Lyme Antibody was positive, sent for Western blot confirmation; however, at this point, patient is being treated for Group B Strep Bacteremia, likely secondary to a cellulitis of the left lower extremity. Other possible etiolgies though unlikely included lymphoma, endocarditis, anaplasma, and autoimmune disorders among others. #Bacteremia, presented with Fever and Bandemia, secondary to cellulitis of left lower extremity - Admitted to general medicine - Given Doxycycline 100 mg BID and discontinued after blood cx. grew Group B Strep - Tested for Lyme serology; Lyme antibody positive, but with history of prior disease likely long-standing antibody present, sent for confirmatory western blot; unlikely patient presentation due to Lyme disease at this time - Blood culture grew GP cocci, Group B Strep; started Ceftriaxone 2 g IV, changed to Amoxicillin 500 mg q8h; continue Amoxicillin as an outpatient for 12 days - Last WBC 6.8 - Vascular surgery consultation as an outpatient - Continue compression stockings Allergies: Coded Allergies: codeine (Mild, RASH/VOMITING 02/02/16) griseofulvin (From KAYLA-PEG (ULTRAMICROSIZE)) (Mild, WELTS, HIVES 02/17/18) valsartan (Mild, RASH, SEVERE WEAKNESS THAT PT COULD BARELY WALK 02/17/18) Pertinent Lab Results: Blood Cx.: Group B strep Disposition Summary Disposition Principal Diagnosis: Bacteremia, Group B Strep Additional Diagnosis: BPH PVD Lyme Disease, dx. 10 years prior Discharge Disposition: home or self care Discharge Instructions General Discharge Information Code Status: Full Code Patient's Diet: Regular, as tolerated Patient's Activity: Resume activity, as tolerated Follow-Up Instructions/Appts: Please follow up with PCP in 7 days or sooner if return of fever, chills, or any new rash. Please follow up with Vascular specialist within 2 weeks. Please take all medications as prescribed. Medications at Discharge Discharge Medications: Continue taking these medications: Lisinopril (Lisinopril) 20 MG TABLET 1 Tablet ORAL DAILY Comments: Last Taken: 02/20/18 Time: 9:30 AM Levothyroxine Sodium (Levothyroxine Sodium) 50 MCG TABLET 1 Tablet ORAL DAILY Comments: Last Taken: 02/20/18 Time: 5:30 AM Warfarin Sodium (Coumadin) 5 MG TABLET 1 Tablet ORAL Every other day Comments: Last Taken: 02/19/18 Time: 5:00 PM Warfarin Sodium (Coumadin) 2.5 MG TABLET 1 Tablet ORAL Every other day Comments: Last Taken: 02/18/18 Time: 5:00 PM Amlodipine Besylate (Amlodipine Besylate) 5 MG TABLET 1 Tablet ORAL DAILY Comments: Last Taken: 02/20/18 Time: 9:30 AM Pravastatin Sodium (Pravachol) 40 MG TABLET 1 Tablet ORAL DAILY Comments: Last Taken: 02/19/18 Time: 5:00 PM (LIPITOR 20 MG PO GIVEN) Cholecalciferol (Vitamin D3) (Vitamin D) 1,000 UNIT TABLET 1 Tablet ORAL DAILY Comments: Last Taken: 02/20/18 Time: 9:30 AM Start taking the following new medications: Amoxicillin (Amoxicillin) 500 MG CAPSULE 1 Capsule ORAL THREE TIMES DAILY Qty = 36 No Refills Instructions: Please take three times a day. Comments: Last Taken: 02/20/18 Time: 5:30 AM Copies To: Tamika BELLO,Nate Perales MD,Fabrizio Rodriguez MD Review Statement Documenting Attending: Cady Barros MD
--- NOTE | 2018-02-19 12:02 | Cons- Infect Disease ---
General Information and HPI Consulting Request Date of Consult: 02/19/18 Requested By: Cady Barros MD Reason for Consult: Positive blood culture for Group B strep Source of Information: patient History of Present Illness: This is an 87-year-old man with a history of atrial fibrillation, maintained on Coumadin, sick sinus syndrome, status post pacemaker 2 years prior to admission, hypertension, hyperlipidemia, hypothyroidism, BPH and peripheral vascular disease, status post left femoral peroneal bypass 3 1/2 years prior to admission , complicated by infection, requiring a wound VAC for 5 months, with eventual healing but with residual left leg inflammation, admitted on February 17 with the acute onset of fevers and chills on the morning of admission. On admission he was febrile to 102.5. Laboratory data revealed a white blood cell count of 10, 000, with 80 segs and 7 bands, BUN/creatinine 28 and 1.2, with normal liver enzymes, INR 2.91. Urinalysis rare RBC/rare WBCs. Chest x-ray revealed no evidence of pneumonia. He was begun on Doxycycline for possible Lyme disease. On February 18 blood culture was reported positive for gram-positive cocci in pairs and chains and he was given 1 dose of Vancomycin. This morning Doxycycline was discontinued and he was begun on Ceftriaxone. He defervesced immediately and has remained afebrile since admission. His white blood cell count increased to 14,000 on February 18 but has normalized today. Presently he feels well with no complaints. He denies any trauma to the lower extremities or any recent medical procedures. Allergies/Medications Allergies: Coded Allergies: codeine (Mild, RASH/VOMITING 02/02/16) griseofulvin (From KAYLA-PEG (ULTRAMICROSIZE)) (Mild, WELTS, HIVES 02/17/18) valsartan (Mild, RASH, SEVERE WEAKNESS THAT PT COULD BARELY WALK 02/17/18) Home Med List: Amlodipine Besylate 5 MG TABLET 1 TAB PO DAILY BP (Reported) Cholecalciferol (Vitamin D3) (Vitamin D) 1,000 UNIT TABLET 1 TAB PO DAILY SUPPLEMENT (Reported) Levothyroxine Sodium 50 MCG TABLET 1 TAB PO DAILY THYROID (Reported) Lisinopril 20 MG TABLET 1 TAB PO DAILY BP (Reported) Pravastatin Sodium (Pravachol) 40 MG TABLET 1 TAB PO DAILY CHOLESTEROL ( Reported) Warfarin Sodium (Coumadin) 5 MG TABLET 1 TAB PO EOD BLOOD THINNER (Reported) Warfarin Sodium (Coumadin) 2.5 MG TABLET 1 TAB PO EOD BLOOD THINNER (Reported ) Past History Travel History Traveled to [place] past 21 day No Medical History Blood Transfusion Hx: Yes Neurological: BRAIN TUMOR Cardiovascular: AFIB, hypertension, PVD, SLOW/IRREGULAR HEARTBEAT DVT PACEMAKER Respiratory: NONE Gastrointestinal: NONE Hepatic: NONE Renal: benign prost hyperplasia Musculoskeletal: osteoarthritis Psychiatric: NONE Endocrine: hypothyroidism Blood Disorders: DVT Cancer(s): NONE 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 Home Who Do You Live With? spouse Smoking Status: Former Smoker ETOH Use: denies use Illicit Drug Use: denies illicit drug use Living Will? yes Employment History Employment: Retired Review of Systems Review of Systems Cardiovascular: Denies: chest pain. Respiratory: Denies: cough, short of breath. GI: Denies: abdominal pain, diarrhea, nausea, vomiting. Genitourinary: Reports: no symptoms. Skin: Reports: rash (perianal). All Other Systems: Reviewed and Negative Exam & Diagnostic Data Last 24 Hrs of Vital Signs/I&O Vital Signs Date Time Temp Pulse Resp B/P B/P Pulse O2 O2 Flow FiO2 Mean Ox Delivery Rate / 0739 89 120/68 / 0739 89 120/68 / 0728 97.9 80 20 120/68 96 Room Air / 2212 98.6 84 20 132/66 94 08/05 1515 99.5 63 20 150/68 94 Room Air Intake & Output 02/19 1600 08/06 0800 08/06 0000 Intake Total 120 410 Output Total 300 350 Balance -180 60 Intake, IV 10 Intake, Oral 120 400 Number 0 Bowel Movements Output, Urine 300 350 Physical Exam Other Physical Findings: He is awake and alert in no acute distress. He is afebrile. Skin reveals perianal candidiasis. HEENT exam is negative. Neck is supple with no adenopathy. Chest pacemaker in the left upper chest with no inflammation at the site. Lungs are clear. Heart regular rhythm with no murmur. Abdomen is soft, nontender with positive bowel sounds. Back no CVA tenderness. Extremities chronic skin changes to the left lower extremity, with no open wounds; left leg mild edema, erythema and warmth, with minimal tenderness on the lateral aspect; pulses 1+ bilaterally. Neuro is without focality. Last 24 Hours of Lab Results: Laboratory Tests 02/19 0605 Chemistry Sodium (137 - 145 mmol/L) 137 Potassium (3.5 - 5.1 mmol/L) 4.1 Chloride (98 - 107 mmol/L) 106 Carbon Dioxide (22 - 30 mmol/L) 25 Anion Gap (5 - 16) 6 BUN (9 - 20 mg/dL) 29 H Creatinine (0.7 - 1.2 mg/dL) 1.3 H Estimated GFR (>60 ml/min) 52 L BUN/Creatinine Ratio (7 - 25 %) 22.3 Coagulation PT (9.4 - 12.5 SEC) 27.0 H INR (0.90 - 1.17) 2.45 H Hematology CBC w Diff NO MAN DIFF REQ WBC (4.8 - 10.8 /CUMM) 9.6 RBC (4.70 - 6.10 /CUMM) 3.80 L Hgb (14.0 - 18.0 G/DL) 12.0 L Hct (42 - 52 %) 35.0 L MCV (80.0 - 94.0 FL) 92.1 MCH (27.0 - 31.0 PG) 31.5 H MCHC (33.0 - 37.0 G/DL) 34.2 RDW (11.5 - 14.5 %) 13.7 Plt Count (130 - 400 /CUMM) 162 MPV (7.4 - 10.4 FL) 7.8 Gran % (42.2 - 75.2 %) 64.2 Lymphocytes % (20.5 - 51.1 %) 21.2 Monocytes % (1.7 - 9.3 %) 10.1 H Eosinophils % (0 - 5 %) 3.9 Basophils % (0.0 - 2.0 %) 0.6 Absolute Granulocytes (1.4 - 6.5 /CUMM) 6.2 Absolute Lymphocytes (1.2 - 3.4 /CUMM) 2.0 Absolute Monocytes (0.10 - 0.60 /CUMM) 1.0 H Absolute Eosinophils (0.0 - 0.7 /CUMM) 0.4 Absolute Basophils (0.0 - 0.2 /CUMM) 0.1 Last 24 Hours of [place] Results: Blood cultures February 17 1 bottle positive for Group B strep Urine culture February 17 negative Diagnostic Data Recent Imaging Findings: Chest x-ray February 17 no evidence of pneumonia Assessment/Plan Assessment/Plan Impression: This is an 87-year-old man, status post pacemaker 2 years prior to admission, with a history of peripheral vascular disease, status post left femoral peroneal bypass 3 1/2 years prior to admission, complicated by infection, requiring a wound VAC for 5 months, with eventual healing but with residual left leg inflammation, admitted on February 17 with the acute onset of fevers and chills, found to be febrile with a mild bandemia and with 1 blood culture positive for Group B beta strep. The most likely source of his sepsis is a cellulitis of the left lower extremity. Though he does report chronic swelling and discoloration of the left leg, there is mild erythema and warmth and, in the absence of any other obvious focus of infection, suspect that this is the source. He did have a surgical site infection after his left lower extremity bypass over 3 years prior to admission but, given the acuity of his present illness, it seems unlikely that this is related to his current illness. Endocarditis or seeding of the pacemaker is possible, but he appears to have responded quickly to antibiotics; therefore this seems unlikely. He does have mild perianal candidiasis but this is unlikely related to his bacteremia. Suggestion: 1. Elevation of the left leg 2. Vascular surgery evaluation 2. Compression stockings for the left lower extremity 4. Nystatin for the perianal rash 5. Discontinue Ceftriaxone and begin Amoxicillin 500 mg p.o. every 8 hours to complete a 10-14 day course of treatment Consult Acknowledgment - Thank you for your consult request.
[2018-02-19 14:03] VITALS: BP 122/64
[2018-02-19 21:49] VITALS: BP 116/64
[2018-02-20 06:20] VITALS: BP 126/60
--- NOTE | 2018-02-20 07:19 | PN- Housestaff ---
Gayle Vidal [birth year]18718: Subjective Follow-up For: Fever Bandemia Bacteremia Subjective: Afebrile overnight. Patient notes no new concerns today and slept well last night. Patient mentions he used the antifungal cream yesterday for his rash in the groin area. Patient denies any itching or tenderness in the area. Patient's left leg has a prior surgical scar for which the patient says is not painful, tender, or warm but notes he spoke with the ID doctor yesterday and understood that his infection possibly originated from that source. Patient otherwise denies any fevers, chills, fatigue, chest pain, and dyspnea. Review of Systems Constitutional: Reports: see HPI. Objective Last 24 Hrs of Vital Signs/I&O Vital Signs Date Time Temp Pulse Resp B/P B/P Pulse O2 O2 Flow FiO2 Mean Ox Delivery Rate 02/20 0620 98.2 65 18 126/60 96 Room Air 02/19 2149 98.3 70 17 116/64 95 Room Air 02/19 1403 98.1 67 20 122/64 97 Room Air Intake & Output 02/20 1600 02/20 0800 02/20 0000 Intake Total 120 480 Output Total 1050 500 Balance -930 -20 Intake, Oral 120 480 Output, Urine 1050 500 Physical Exam General Appearance: Alert, Oriented X3, Cooperative, No Acute Distress Skin: left lower leg, minimal area of erythema (prior left tibial surgical scar) HEENT: Atraumatic Neck: Supple, No JVD Cardiovascular: Regular Rate, Normal S1, Normal S2 Lungs: Clear to Auscultation, Normal Air Movement Abdomen: Soft, No Tenderness Neurological: Normal Speech Extremities: No Edema, Normal Pulses Assessment/Plan Assessment: Imaging- CXR IMPRESSION 1. No evidence of pneumonia. 2. Mild cardiomegaly with dual-chamber pacemaker in place. Pertinent Labs- WBC 9.6 -> 14.2 -> 9.6 HGB 12 HCT 35 PLT 162 Band neutrophils 7 UA: normal Lyme titer: pending Blood culture - GP cocci pairs and chains: Group B strep on identification 87 YO male with a PMHx. of Lyme disease treated 10 years prior, hypothyroidism, BPH, PVD, Sick Sinus syndrome with pacemaker placement in 2016, HTN, and HLD who presents to the ED with "fever and chills." Patient received 1 L bolus NS and Ibuprofen 800 mg once in the ED. Etiology in this case with a benign disease presentation apart from less than 24 hours of recent onset fever and chills with relatively normal lab findings is at the moment a fever of unknown origin. Further work up blood and urine cultures warranted. Patient has a past history of Lyme disease with treatment and therefore further workup for tick-borne illnesses is recommended. Other possible etiolgies though unlikely include lymphoma, endocarditis, anaplasma, and autoimmune disorders among others. Plan: #Group B Strep Bacteremia, presented with fever - Admit to general medicine for monitoring and assessment of vitals - Discontinued Doxycycline 100 mg BID - DisContinued Ceftriaxone 2 g IV - Started Amoxicillin 500 mg TID - According to ID, likely source of bacteremia from chronic, left-sided scar from prior left lower extremity bypass - Vascular consulted - Elevate left leg; compression stocking for left lower extremity - Test for Lyme serology via a Lyme titer pending - Also testing for Anaplasma, Babesia - Peripheral blood smear - UA and CXR unremarkable - Blood culture grew GP cocci, Group B strep identified - Latest WBC 9.6, follow CBC in AM - DVT PPx. #Home medications - Please continue home medications - Follow up INR; dose Coumadin accordingly Code Status: FC Problem List: 1. Fever 2. Bandemia 3. Bacteremia Pain Ratin Pain Location: N/A Pain Goal: Remain pain free Pain Plan: N/A Tomorrow's Labs & Rationales: routine labs Fiorella BELLO,Cady 02/20/18 0956: Attending MD Review Statement Attending Statement Attending MD Statement: examined this patient, discuss w/resident/PA/RAYMOND MILL OPERATOR, agreed w/resident/PA/RAYMOND MILL OPERATOR, reviewed EMR data (avail), discussed with nursing, discussed with case mgmt, reviewed images Attending Assessment/Plan: Patient feels well and is eager to go home. He is on p.o. Amoxl per ID. We spoke to ID and he needs to finish a total of 14 days of antibiotics for cellulitis with group B strep bacteremia and he will have outpatient vascular surgery evaluation. We think the source is the cellulitis of his lower extremity.
[2018-02-20 08:33] LABS: PT 26.3 SEC (9.4-12.5)
[2018-02-20 08:34] LABS: ABSOLUTE BASOPHIL COUNT 0.1 /CUMM (0.0-0.2); ABSOLUTE EOSINOPHIL COUNT 0.4 /CUMM (0.0-0.7); ABSOLUTE GRANULOCYTE CT 3.7 /CUMM (1.4-6.5); ABSOLUTE LYMPH COUNT 1.8 /CUMM (1.2-3.4); ABSOLUTE MONOCYTE COUNT 0.7 /CUMM (0.10-0.60); BASOPHIL % 1.1 % (0.0-2.0); EOSINOPHIL % 6.4 % (0-5); GRANULOCYTE % 54.8 % (42.2-75.2); HEMATOCRIT 38.9 % (42-52); MEAN CORPUSCULAR HGB CONC 33.9 G/DL (33.0-37.0); MEAN CORPUSCULAR VOLUME 91.4 FL (80.0-94.0); MEAN PLATELET VOLUME 7.7 FL (7.4-10.4); PLATELET COUNT 191 /CUMM (130-400); RBC DISTRIBUTION WIDTH 13.6 % (11.5-14.5); RED BLOOD CELL CT 4.26 /CUMM (4.70-6.10); WHITE BLOOD CELL COUNT 6.8 /CUMM (4.8-10.8)
[2018-02-20 09:28] VITALS: BP 134/66
--- NOTE | 2018-02-20 10:06 | Patient Discharge Instructions ---
Discharge Instructions General Discharge Information You were seen/treated for: Fever Bandemia Bacteremia You had these procedures: CXR Blood Culture Lyme Antibody screening Watch for these problems: Watch for any signs of a new rash or worsening redness, swelling, and pain of the skin. Special Instructions: Please follow up with your PCP within one week. Please follow up with Vascular Specialist within 2 weeks. Please take antiobiotic medication as prescribed, three times daily. Please continue taking your home medications as prescribed. Diet Continue normal diet: Yes Recommended Diet: Regular Activity Full Activity/No Limits: No Activity Self Limited: Yes Acute Coronary Syndrome Inclusion Criteria At DC or during hospital stay patient has or had the following: ACS DIAGNOSIS No Discharge Core Measures Meds if any: Prescribed or Continued at Discharge PER/ARB if EF <40% No Meds if any: NOT Prescribed or Continued at Discharge Congestive Heart Failure Inclusion Criteria At DC or during hospital stay patient has or had the following: CHF DIAGNOSIS No Discharge Core Measures Meds if any: Prescribed or Continued at Discharge Meds if any: NOT Prescribed or Continued at Discharge Cerebrovascular accident Inclusion Criteria At DC or during hospital stay patient has or had the following: CVA/TIA Diagnosis No Discharge Core Measures Meds if any: Prescribed or Continued at Discharge Meds if any: NOT Prescribed or Continued at Discharge Venous thromboembolism Inclusion Criteria VTE Diagnosis No VTE Type NONE VTE Confirmed by (Test) NONE Discharge Core Measures - Per Current guidelines, there needs to be overlap - treatment for the first 5 days of Warfarin therapy. - If discharged on Warfarin prior to 5 days of - overlap therapy, the patient will need to be - assessed for post discharge needs including - *Post discharge parental anticoagulation - *Warfarin and/or parental anticoagulation education - *Follow up date to check INR post discharge At least 5 days overlap therapy as Inpatient No Meds if any: Prescribed or Continued at Discharge Note: Overlap Therapy is Warfarin and Anticoagulant Meds if any: NOT Prescribed or Continued at Discharge
[2018-02-20] MEDS ORDERED: AMOXICILLIN500 M2 PO ×3 (10:11→10:20)
--- NOTE | 2018-02-20 10:37 | PN- Infect Dx ---
Subjective Subjective: Afebrile without complaints Objective Last 24 Hrs of Vital Signs/I&O Vital Signs Date Time Temp Pulse Resp B/P B/P Pulse O2 O2 Flow FiO2 Mean Ox Delivery Rate 02/20 0928 58 134/66 02/20 0620 98.2 65 18 126/60 96 Room Air 02/19 2149 98.3 70 17 116/64 95 Room Air 02/19 1403 98.1 67 20 122/64 97 Room Air Intake & Output 02/20 1600 02/20 0800 02/20 0000 Intake Total 120 480 Output Total 1050 500 Balance -930 -20 Intake, Oral 120 480 Output, Urine 1050 500 Physical Exam Other Physical Findings: He appears comfortable in no acute distress Lungs are clear Heart regular rhythm with no murmur Extremities left leg mild edema, with minimal erythema, tenderness and warmth Results Last 24 Hours of Lab Results: Laboratory Tests 02/20 700 Chemistry Sodium (137 - 145 mmol/L) 138 Potassium (3.5 - 5.1 mmol/L) 4.3 Chloride (98 - 107 mmol/L) 106 Carbon Dioxide (22 - 30 mmol/L) 25 Anion Gap (5 - 16) 8 BUN (9 - 20 mg/dL) 23 H Creatinine (0.7 - 1.2 mg/dL) 1.2 Estimated GFR (>60 ml/min) 58 L BUN/Creatinine Ratio (7 - 25 %) 19.2 Coagulation PT (9.4 - 12.5 SEC) 26.3 H INR (0.90 - 1.17) 2.39 H Hematology CBC w Diff NO MAN DIFF REQ WBC (4.8 - 10.8 /CUMM) 6.8 RBC (4.70 - 6.10 /CUMM) 4.26 L Hgb (14.0 - 18.0 G/DL) 13.2 L Hct (42 - 52 %) 38.9 L MCV (80.0 - 94.0 FL) 91.4 MCH (27.0 - 31.0 PG) 31.0 MCHC (33.0 - 37.0 G/DL) 33.9 RDW (11.5 - 14.5 %) 13.6 Plt Count (130 - 400 /CUMM) 191 MPV (7.4 - 10.4 FL) 7.7 Gran % (42.2 - 75.2 %) 54.8 Lymphocytes % (20.5 - 51.1 %) 26.9 Monocytes % (1.7 - 9.3 %) 10.8 H Eosinophils % (0 - 5 %) 6.4 H Basophils % (0.0 - 2.0 %) 1.1 Absolute Granulocytes (1.4 - 6.5 /CUMM) 3.7 Absolute Lymphocytes (1.2 - 3.4 /CUMM) 1.8 Absolute Monocytes (0.10 - 0.60 /CUMM) 0.7 H Absolute Eosinophils (0.0 - 0.7 /CUMM) 0.4 Absolute Basophils (0.0 - 0.2 /CUMM) 0.1 Last 24 Hours of [place] Results: No recent cultures Assessment/Plan ID Impression: Improved, with temperatures and white blood cell count remaining normal, now on Amoxicillin, Day 3 of treatment for Group B strep bacteremia, most likely secondary to cellulitis of the left lower extremity, with some evidence of inflammation superimposed on chronic venous stasis changes. Suggestion: 1. Vascular surgery reevaluation (can do as outpatient) 2. Continue compression stockings 3. Continue Amoxicillin for 11 more days
== END 2018-02-20 12:57 | DRG 603 ==
LOC: ERH 12:12 → ERHI 16:19 → 2NA 16:19 → ENRESERV 16:42 → ENTRNSPT 17:15 → EDTRNSPTSTS 17:19 → EDTRNSPT 17:19 → 2NA 17:38 → CMPTRNSPT 17:43 → 2NA 02-19 08:04 → CMPTRNSPT 02-20 12:57
PROVIDERS: Physician Assistant Medical
DX: L03.116 Cellulitis of left lower limb (principal); R78.81 Bacteremia; I73.9 Peripheral vascular disease, unspecified; I48.2 Chronic atrial fibrillation; I87.2 Venous insufficiency (chronic) (peripheral); Z95.0 Presence of cardiac pacemaker; I10 Essential (primary) hypertension; B95.1 Streptococcus, group B, as the cause of diseases classified elsewhere; E78.5 Hyperlipidemia, unspecified; Z79.01 Long term (current) use of anticoagulants; E03.9 Hypothyroidism, unspecified; N40.0 Benign prostatic hyperplasia without lower urinary tract symptoms; Z86.19 Personal history of other infectious and parasitic diseases; Z86.718 Personal history of other venous thrombosis and embolism; Z88.8 Allergy status to other drugs, medicaments and biological substances; Z88.5 Allergy status to narcotic agent
CPT/HCPCS: 2NAP; 86317; 86618; 87798; 36415; 36592; 71046; 81001; 82436; 87040; 87070; 87086; 87147; 93005; 93010; J0131; J0696; J3370; J7040